=== PATIENT | male | born 1945 | race Caucasian/White ===

== ENCOUNTER 2017-06-26 15:52 | Emergency (ER) | payer OTHER ==
[~2017-06-26 15:52] MED LIST: ASPI81TA82 PO; CLIN1CAP5 PO; HYDR10SO PO; HYDR12.56 PO; METF500 PO; MOBI15TA PO; NITR0.4S SL; SYMB160A INH; TAMS0.4C67 PO; ZOCO40TA PO; [UNRECOGNIZED DRUG - OTHER] PO
[2017-06-26 16:10] VITALS: BP 151/76; PULSE 74; RESP 20; TEMP 97.7; O2SAT 96
[2017-06-26] MEDS ORDERED: SODIUM CHLORIDE 0.9% FLUSH 10 ML FLUSH IVF PRN (16:15)
[2017-06-26] MEDS ORDERED: ASPIRIN 325 MG TAB PO ONE (16:15)
[2017-06-26] MEDS ORDERED: MORPHINE SULFATE 2 MG/ML INJ IV PUSH ONE (16:15)
[2017-06-26 16:30] VITALS: O2SAT 94
--- NOTE | 2017-06-26 16:35 | PD ---
HPI Chief Complaint: Pain: Acute or Chronic Time Seen by Provider: 16:01 Travel History International Travel<30 days: No Contact w/Intl Traveler<30days: No Traveled to known affect area: No History of Present Illness HPI This is a 72-year-old male presents here complaining of pain in his chest. Patient has been coughing for the last 2 weeks, cough is productive of yellow sputum. Pain is 7 out of 10, located in the mid chest and radiates to the left , worse when he coughs or takes a deep breath, sharp, no fever or chills or night sweats. Patient reports taking amoxicillin for his bronchitis. Patient has a history of COPD but does not use home oxygen. He used to smoke but quit "many years ago". PFSH Past Medical History Heart Rhythm Problems: Yes High Cholesterol: Yes COPD: Yes Diabetes: Yes Diminished Hearing: No Hypertension: Yes Respiratory: Yes (BRONCHITIS) Social History Alcohol Use: No Tobacco Use: No Substance Use: No Allergies-Medications (Allergen,Severity, Reaction): Coded Allergies: No Known Allergies (Unverified , 06/26/14) Reported Meds & Prescriptions Reported Meds & Active Scripts Active Robitussin Nighttime Cough Liq (Doxylamine-Dextromethorphan Liq) 12.5-30 Mg/10 Ml Soln 10 Ml PO Q6H PRN EC-Naprosyn (Naproxen) 375 Mg Tabdr 375 Mg PO BID Mobic (Meloxicam) 15 Mg Tab 15 Mg PO DAILY Clindamycin Hcl (Clindamycin HCl) 150 Mg Cap 2 Tab PO QID Reported Symbicort (Budesonide/Formoterol Fumarate) 160 Mcg/4.5 Mcg Aer 2 Puff INH BID * SHAKE WELL BEFORE USE * Hydrocodone/Acetaminophen (Miscellaneous Medication) 1 Tab 1 Tab PO Q4H PRN Nitrostat (Nitroglycerin) 0.4 Mg Sub 0.4 Mg SL DIRECTED Th Potassium Gluconate (Potassium Gluconate) 595 Mg Tab 595 Mg PO DAILY Aspir-81 (Aspirin) 81 Mg Tab 81 Mg PO DAILY Hydrochlorothiazide (Miscellaneous Medication) 12.5 Mg Cap 12.5 Mg PO DAILY Glucophage 500 mg (Metformin HCl) 500 Mg Tab 500 Mg PO DAILY Zocor 40 mg (Simvastatin) 40 Mg Tab 10 Mg PO HS Flomax (Tamsulosin HCl) 0.4 Mg Cap 0.4 Mg PO DAILY Review of Systems Except as stated in HPI: all other systems reviewed are Neg Physical Exam Narrative GENERAL: Alert oriented 3 no acute distress SKIN: Focused skin assessment warm/dry. HEAD: Atraumatic. Normocephalic. EYES: Pupils equal and round. No scleral icterus. No injection or drainage. ENT: No nasal bleeding or discharge. Mucous membranes pink and moist. NECK: Trachea midline. No JVD. CARDIOVASCULAR: Regular rate and rhythm. No murmur appreciated. RESPIRATORY: No accessory muscle use. Clear to auscultation. Breath sounds equal bilaterally. GASTROINTESTINAL: Abdomen soft, non-tender, nondistended. Hepatic and splenic margins not palpable. MUSCULOSKELETAL: No obvious deformities. No clubbing. No cyanosis. No edema. NEUROLOGICAL: Awake and alert. No obvious cranial nerve deficits. Motor grossly within normal limits. Normal speech. PSYCHIATRIC: Appropriate mood and affect; insight and judgment normal. Data Data Last Documented VS Vital Signs Date Time Temp Pulse Resp B/P (MAP) Pulse Ox O2 Delivery O2 Flow Rate FiO2 06/26/17 18:41 06/26/17 18:37 76 16 97 Room Air 06/26/17 17:29 2.00 06/26/17 16:10 97.7 Orders Orders Electrocardiogram (06/26/17 16:10) B-Type Natriuretic Peptide (06/26/17 16:10) Ckmb (Isoenzyme) Profile (06/26/17 16:10) Complete Blood Count With Diff (06/26/17 16:10) Comprehensive Metabolic Panel (06/26/17 16:10) D-Dimer (06/26/17 16:10) Magnesium (Mg) (06/26/17 16:10) Prothrombin Time / Inr (Pt) (06/26/17 16:10) Act Partial Throm Time (Ptt) (06/26/17 16:10) Troponin I (06/26/17 16:10) Ecg Monitoring (06/26/17 16:10) Bilateral Bp Monitoring (06/26/17 16:10) Iv Access Insert/Monitor (06/26/17 16:10) Oximetry (06/26/17 16:10) Oxygen Administration (06/26/17 16:10) Aspirin (Aspirin) (06/26/17 16:15) Sodium Chloride 0.9% Flush (Ns Flush) (06/26/17 16:15) Chest, Pa & Lat (06/26/17 16:10) Morphine Inj (Morphine Inj) (06/26/17 16:15) CKMB (06/26/17 16:40) CKMB% (06/26/17 16:40) Ed Discharge Order (06/26/17 17:55) Labs Laboratory Tests Test 06/26/17 16:40 White Blood Count 6.4 TH/MM3 Red Blood Count 5.13 MIL/MM3 Hemoglobin 15.7 GM/DL Hematocrit 44.5 % Mean Corpuscular Volume 86.8 FL Mean Corpuscular Hemoglobin 30.5 PG Mean Corpuscular Hemoglobin Concent 35.2 % Red Cell Distribution Width 13.6 % Platelet Count 206 TH/MM3 Mean Platelet Volume 8.1 FL Neutrophils (%) (Auto) 58.1 % Lymphocytes (%) (Auto) 32.8 % Monocytes (%) (Auto) 5.3 % Eosinophils (%) (Auto) 2.8 % Basophils (%) (Auto) 1.0 % Neutrophils # (Auto) 3.7 TH/MM3 Lymphocytes # (Auto) 2.1 TH/MM3 Monocytes # (Auto) 0.3 TH/MM3 Eosinophils # (Auto) 0.2 TH/MM3 Basophils # (Auto) 0.1 TH/MM3 CBC Comment DIFF FINAL Differential Comment Prothrombin Time 10.5 SEC Prothromb Time International Ratio 1.0 RATIO Activated Partial Thromboplast Time 24.0 SEC D-Dimer Quantitative (PE/DVT) LESS THAN 0.19 MG/L FEU Blood Urea Nitrogen 13 MG/DL Creatinine 0.90 MG/DL Random Glucose 151 MG/DL Total Protein 6.9 GM/DL Albumin 3.7 GM/DL Calcium Level 8.5 MG/DL Magnesium Level 2.0 MG/DL Alkaline Phosphatase 78 U/L Aspartate Amino Transf (AST/SGOT) 14 U/L Alanine Aminotransferase (ALT/SGPT) 21 U/L Total Bilirubin 0.4 MG/DL Sodium Level 138 MEQ/L Potassium Level 3.3 MEQ/L Chloride Level 103 MEQ/L Carbon Dioxide Level 25.5 MEQ/L Anion Gap 10 MEQ/L Estimat Glomerular Filtration Rate 83 ML/MIN Total Creatine Kinase 210 U/L Creatine Kinase MB 3.6 NG/ML Troponin I LESS THAN 0.02 NG/ML B-Type Natriuretic Peptide 41 PG/ML [facility] Medical Decision Making Medical Screen Exam Complete: Yes Emergency Medical Condition: Yes Differential Diagnosis Acute coronary syndrome, bronchitis, pneumonia, pneumothorax. Narrative Course This is a 72-year-old male who presented complaining of chest pain pain seems to be pleuritic in nature since patient says every time he coughs or takes a deep breath it causes severe pain. Patient was being treated for bronchitis for the last few weeks and states that his pain has been getting worse in the last week. Labs are unremarkable, troponins negative EKG is unremarkable, chest x-ray shows no infiltrate. I believe this patient is stable to be discharged since his pain does not seem to be of a cardiac origin although I discussed with the patient that if symptoms do not improve with pain medications he needs to come to the ER immediately or if his pain becomes constant and not related to cough. I also discussed with patient the importance of following up with a cardiology and pulmonology for repeat chest x- ray as needed. Patient is a plan of care. Laboratory Tests Test 06/26/17 16:40 White Blood Count 6.4 TH/MM3 (4.0-11.0) Red Blood Count 5.13 MIL/MM3 (4.50-5.90) Hemoglobin 15.7 GM/DL (13.0-17.0) Hematocrit 44.5 % (39.0-51.0) Mean Corpuscular Volume 86.8 FL (80.0-100.0) Mean Corpuscular Hemoglobin 30.5 PG (27.0-34.0) Mean Corpuscular Hemoglobin Concent 35.2 % (32.0-36.0) Red Cell Distribution Width 13.6 % (11.6-17.2) Platelet Count 206 TH/MM3 (150-450) Mean Platelet Volume 8.1 FL (7.0-11.0) Neutrophils (%) (Auto) 58.1 % (16.0-70.0) Lymphocytes (%) (Auto) 32.8 % (9.0-44.0) Monocytes (%) (Auto) 5.3 % (0.0-8.0) Eosinophils (%) (Auto) 2.8 % (0.0-4.0) Basophils (%) (Auto) 1.0 % (0.0-2.0) Neutrophils # (Auto) 3.7 TH/MM3 (1.8-7.7) Lymphocytes # (Auto) 2.1 TH/MM3 (1.0-4.8) Monocytes # (Auto) 0.3 TH/MM3 (0-0.9) Eosinophils # (Auto) 0.2 TH/MM3 (0-0.4) Basophils # (Auto) 0.1 TH/MM3 (0-0.2) CBC Comment DIFF FINAL Differential Comment Prothrombin Time 10.5 SEC (9.8-11.6) Prothromb Time International Ratio 1.0 RATIO Activated Partial Thromboplast Time 24.0 SEC (24.3-30.1) D-Dimer Quantitative (PE/DVT) LESS THAN 0.19 MG/L FEU Blood Urea Nitrogen 13 MG/DL (7-18) Creatinine 0.90 MG/DL (0.60-1.30) Random Glucose 151 MG/DL (74-106) Total Protein 6.9 GM/DL (6.4-8.2) Albumin 3.7 GM/DL (3.4-5.0) Calcium Level 8.5 MG/DL (8.5-10.1) Magnesium Level 2.0 MG/DL (1.5-2.5) Alkaline Phosphatase 78 U/L (45-117) Aspartate Amino Transf (AST/SGOT) 14 U/L (15-37) Alanine Aminotransferase (ALT/SGPT) 21 U/L (12-78) Total Bilirubin 0.4 MG/DL (0.2-1.0) Sodium Level 138 MEQ/L (136-145) Potassium Level 3.3 MEQ/L (3.5-5.1) Chloride Level 103 MEQ/L (98-107) Carbon Dioxide Level 25.5 MEQ/L (21.0-32.0) Anion Gap 10 MEQ/L (5-15) Estimat Glomerular Filtration Rate 83 ML/MIN (>89) Total Creatine Kinase 210 U/L (39-308) Creatine Kinase MB 3.6 NG/ML (0.5-3.6) Troponin I LESS THAN 0.02 NG/ML B-Type Natriuretic Peptide 41 PG/ML (0-100) Last 24 hours Impressions Chest X-Ray 06/26/17 1610 Signed Impressions: Service Date/Time: Monday, June 26, 2017 16:21 - CONCLUSION: Elevation of the right hemidiaphragm. No acute focal pulmonary infiltrate or pulmonary vascular congestion. Atif Boateng MD Diagnosis Primary Impression: Pleuritic chest pain Scripts Doxylamine-Dextromethorphan Liq (Robitussin Nighttime Cough Liq) 12.5-30 Mg/10 Ml Soln 10 ML PO Q6H Y for COUGH AND/OR COLD SYMPTOMS, #1 BOTTLE 0 Refills Prov: Arie Hill MD 06/26/[address] (EC-Naprosyn) 375 Mg Tabdr 375 MG PO BID, #20 TAB 0 Refills Prov: Arie Hill MD 06/26/17 Disposition: 01 DISCHARGE HOME Condition: Stable Arie Hill MD Jun 26, 2017 16:35
--- NOTE | 2017-06-26 16:46 | RADRPT ---
EXAM DATE/TIME: 06/26/2017 16:21 [place] COMPARISON: No previous studies available for comparison. INDICATIONS : Left side chest pain. Patient states he coughed and has had left side chest pain since. MEDICAL HISTORY : Hypertension. Bronchitis. SURGICAL HISTORY : None. ENCOUNTER: Initial ACUITY: 1 day PAIN SCORE: 8/10 LOCATION: Left chest FINDINGS: PA and lateral views of the chest demonstrate the lungs to be symmetrically aerated without evidence of mass, infiltrate or effusion. The cardiomediastinal contours are unremarkable. There is elevatio n of the right hemidiaphragm. Osseous structures are intact. CONCLUSION: Elevation of the right hemidiaphragm. No acute focal pulmonary infiltrate or pulmonar y vascular congestion. Atif Boateng MD on June 26, 2017 at 16:43 Board Certified Radiologist. This report was verified electronically.
[2017-06-26 16:53] VITALS: BP 138/75; PULSE 79; RESP 16; O2SAT 94
[2017-06-26 17:06] LABS: CHLORIDE 103 MEQ/L (98-107); SODIUM (NA) 138 MEQ/L (136-145)
[2017-06-26 17:09] LABS: CALCIUM 8.5 MG/DL (8.5-10.1)
[2017-06-26 17:10] LABS: ALBUMIN 3.7 GM/DL (3.4-5.0); BICARBONATE 25.5 MEQ/L (21.0-32.0); BLOOD UREA NITROGEN 13 MG/DL (7-18); GLUCOSE,RANDOM 151 MG/DL (74-106)
[2017-06-26 17:12] LABS: PROTHROMBIN TIME - PATIENT 10.5 SEC (9.8-11.6)
[2017-06-26 17:13] LABS: ALT (GPT) 21 U/L (12-78); AST (GOT) 14 U/L (15-37); GLOMERULAR FILTRATION RATE 83 ML/MIN (>89)
[2017-06-26 17:14] LABS: TOTAL BILIRUBIN ADULT 0.4 MG/DL (0.2-1.0); TOTAL PROTEIN 6.9 GM/DL (6.4-8.2)
[2017-06-26 17:16] LABS: ALKALINE PHOSPHATASE 78 U/L (45-117)
[2017-06-26 17:18] LABS: TROPONIN I LESS THAN 0.02 NG/ML (0.02-0.05)
[2017-06-26 17:23] LABS: D-DIMER LESS THAN 0.19 MG/L FEU (0.00-0.50)
[2017-06-26 17:29] VITALS: BP_SYST 126; BP_SYST 137; BP_DIAS 78; BP_DIAS 80; PULSE 76; RESP 16; O2SAT 96
[2017-06-26 17:38] LABS: AUTOMATED NEUTROPHIL # 3.7 TH/MM3 (1.8-7.7); BASOPHIL # 0.1 TH/MM3 (0-0.2); EOSINOPHIL # 0.2 TH/MM3 (0-0.4); EOSINOPHIL % 2.8 % (0.0-4.0); HEMATOCRIT 44.5 % (39.0-51.0); HEMOGLOBIN 15.7 GM/DL (13.0-17.0); LYMPH % 32.8 % (9.0-44.0); LYMPHOCYTE # 2.1 TH/MM3 (1.0-4.8); MEAN CELL VOLUME 86.8 FL (80.0-100.0); MEAN CORPUSCULAR HEMOGLOBIN 30.5 PG (27.0-34.0); MEAN CORPUSCULAR HGB CONC 35.2 % (32.0-36.0); MEAN PLATELET VOLUME 8.1 FL (7.0-11.0); MONO % 5.3 % (0.0-8.0); MONOCYTE # 0.3 TH/MM3 (0-0.9); NEUT % 58.1 % (16.0-70.0); PLATELET COUNT 206 TH/MM3 (150-450); RED BLOOD COUNT 5.13 MIL/MM3 (4.50-5.90); RED CELL DISTRIBUTION WIDTH 13.6 % (11.6-17.2); WHITE BLOOD COUNT 6.4 TH/MM3 (4.0-11.0)
[2017-06-26] MEDS ORDERED: EC-N375T PO (17:55)
[2017-06-26] MEDS ORDERED: DOXY1LIQ3 PO (18:14)
[2017-06-26 18:37] VITALS: BP 132/83; PULSE 76; RESP 16; O2SAT 97
--- NOTE | 2017-06-27 23:41 | EKG ---
Date Performed: 06/26/2017 Time Performed: 16:02:48 PTAGE: 72 years EKG: Sinus rhythm MARKED LEFT AXIS DEVIATION RIGHT BUNDLE BRANCH BLOCK ABNORMAL ECG INTERPRETATION BASED ON A DEFAULT AGE OF 40 YEARS NO PREVIOUS TRACING DOCTOR: Rodney Granados Interpretating Date/Time 06/27/2017 23:38:10
== END 2017-06-26 18:30 | disposition home or self-care (01) ==
LOC: PHED 15:52
DX: R07.1 Chest pain on breathing (principal); R94.31 Abnormal electrocardiogram [ECG] [EKG]; R05 Cough; J44.9 Chronic obstructive pulmonary disease, unspecified; I10 Essential (primary) hypertension; E11.9 Type 2 diabetes mellitus without complications; E78.00 Pure hypercholesterolemia, unspecified; Z87.891 Personal history of nicotine dependence
CPT/HCPCS: 71046; 80053; 82550; 82552; 83735; 83880; 84484; 85025; 85379; 85610; 85730; 93005; 96374; 99285; J2270